=== PATIENT | male | born 1995 | race Caucasian/White ===

== ENCOUNTER 2021-07-21 09:29 | Emergency (ER) | payer OTHER ==
--- NOTE | 2021-07-21 11:15 | ED Physician Documentation ---
History of Present Illness - Stated complaint Stated Complaint: HEAD PX/FEVER/SWEATS - Chief complaint Chief Complaint: Fever - History obtained from History obtained from: Patient - Additonal information Additional information: The patient comes to the emergency department with chief complaint of headache, neck stiffness, body aches, fatigue, and possibly low-grade fever for the last 3 days. Patient states that he was at work on Wednesday, which was 3 days ago, when he suddenly felt very tired. He states he developed somewhat of a headache that day which is persisted through the weekend. He also states he developed some "stiffness" of his neck, which he indicates is located at the superior aspect of the left neck musculature. The patient is not sure if he is still running any fevers. He did not have a fever here. The patient denies any nasal congestion. He states that the [facility] sent him here for evaluation for meningitis. The patient is vaccinated for Covid and had a negative test couple of days ago. He states he is otherwise healthy. No nausea or vomiting. Patient has been able to take food and fluids without too much difficulty, he states. The patient states his other concern is that last night, when he took a deep breath, he noticed that his heart rate sped up, and it hurt a little bit. He denies any chest pain at any other time. He has not had any pain or palpitations, especially with leaning forward. No dyspnea. Review of Systems Ten Systems: 10 systems reviewed and negative Constitutional: reports: Fever (Subjective, low-grade), Fatigue Eyes: reports: Reviewed and negative Ears: reports: Reviewed and negative Nose: reports: Reviewed and negative Throat: reports: Reviewed and negative Cardiac: reports: Reviewed and negative Respiratory: reports: Reviewed and negative GI: reports: Reviewed and negative : reports: Reviewed and negative Skin: reports: Reviewed and negative Musculoskeletal: reports: Neck pain Neurologic: reports: Headache Psychiatric: reports: Reviewed and negative Endocrine: reports: Reviewed and negative Immunocompromised: reports: Reviewed and negative PD PAST MEDICAL HISTORY - Past Medical History Past Medical History: No Cardiovascular: None Respiratory: None Neuro: None Endocrine/Autoimmune: None GI: None : None HEENT: None Psych: None Musculoskeletal: None Derm: None - Past Surgical History Past Surgical History: Yes - Present Medications Home Medications: Ambulatory Orders Medication Instructions Recorded Confirmed Acetaminophen/Cod 300/30 [Tylenol 2 each PO Q4-6H PRN #20 tablet 07/21/21 #3] - Allergies Allergies/Adverse Reactions: Allergies Allergy/AdvReac Type Severity Reaction Status Date / Time No Known Drug Allergies Allergy Verified 07/21/21 09:43 - Social History Does the pt smoke?: No Smoking Status: Never smoker Does the pt drink ETOH?: No Does the pt have substance abuse?: No - Immunizations Immunizations are current?: No PD ED PE NORMAL - Vitals Vital signs reviewed: Yes - General General: Alert and oriented X 3, No acute distress, Well developed/nourished - HEENT HEENT: Atraumatic, PERRL, EOMI, Moist mucous membranes - Neck Neck: Supple, no meningeal sign (During the interview, patient moves his neck with ease. On Physical exam, is able to flex nearly fully though doesn't quite touch chin to chest. Nearly full extension and side to side rotational movement. Tenderness of BL neck musculature, Greatest at left skull base) - Cardiac Cardiac: RRR, No murmur - Respiratory Respiratory: No respiratory distress, Clear bilaterally - Abdomen Abdomen: Soft, Non tender, Non distended - Derm Derm: Normal color, Warm and dry, No rash - Extremities Extremities: No deformity, No edema - Neuro Neuro: Alert and oriented X 3, hook loader 2-12 intact, No motor deficit, No sensory deficit, Normal speech - Psych Psych: Normal mood, Normal affect Results - Vitals Vitals: Vital Signs - 24 hr 07/21/21 09:38 Temperature 36.0 C L Heart Rate 83 Respiratory 16 Rate Blood Pressure 122/84 H O2 Saturation 98 Oxygen O2 Source Room air - EKG (time done) 1052 Rate: Rate (enter#) (80) Rhythm: NSR [place]: Normal Intervals: Normal FL QRS: Normal Ischemia: Other (Slight ST elevation less than 1 mm leads I, II, and V4 through V6.). No: T wave inversion Compare to prior EKG: Old EKG unavailable Computer interpretation: Disagree with computer (Minimal ST elevation with out global findings and no shortened FL interval. Disagree with assessment of acute pericarditis.) PD MEDICAL DECISION MAKING - ED course Complexity details: reviewed results, re-evaluated patient, considered differential, d/w patient ED course: The patient was actually fairly well-appearing, though he did appear to be somewhat uncomfortable. I discussed with him that he most likely has one of the many viral illnesses that are going around. He could have influenza or an influenza-like illness. It is also possible that he has Covid, though he did have a negative test just recently. I have sent a respiratory PCR panel to evaluate for other viral illnesses. As far as concern over meningitis, the patient actually has very good range of motion of his neck, as evidenced during our conversation when the patient is passively moving his neck around, and also, during the dedicated physical exam, during which the patient demonstrates nearly full range of motion, including with flexion. The patient has isolated symptoms of heart pounding and some chest discomfort during inhalation, But otherwise, has been asymptomatic from the standpoint of cardiovascular respiratory symptoms. The EKG did read out as suggestion of acute pericarditis, but I do not feel that this fits the clinical picture. Additionally, the patient had slight ST elevations only in some leads, and no other findings consistent with pericarditis, such as tachycardia or depressed FL segment. Thirdly, his cardiac exam was normal, without a rub. As such, I do not think the patient has pericarditis at this time, though certainly if he develops further symptoms to suggest this, should be reevaluated. We have discussed symptomatic management at home. The patient feels that his ibuprofen is not working, so I will give him a small prescription for some Tylenol 3. We have discussed home management of symptoms, as well as usual indications for return. Departure - Departure Disposition: 01 Home, Self Care Clinical Impression: Viral syndrome, Acute muscle stiffness of neck, Palpitations with regular cardiac rhythm Headache Qualifiers: Headache type: unspecified Headache chronicity pattern: acute headache Intractability: not intractable Qualified Code(s): R51.9 - Headache, unspecified Condition: Stable Instructions: ED Viral Syndrome Prescriptions: Acetaminophen/Cod 300/30 [Tylenol #3] 2 each PO Q4-6H PRN #20 tablet PRN Reason: Headache Comments: Your symptoms are indicative of one of the many viral illnesses that are going around at this time. There are various reasons you can develop a sense of neck stiffness or pain, but the neck stiffness associated with meningitis is very specific and nonmuscular. You have actually quite good range of motion of your neck and your physical exam findings do not at all indicate meningitis at this point in time. You do have tenderness of your neck musculature, especially on the left, and most likely with the not feeling well, your neck Musculature has tensed up. As far as the palpitations and chest discomfort, your EKG looks good. You do not have any symptoms or findings consistent with a viral inflammation of your heart or the sac which surrounds it, at this time. Please stay home and rest until you are feeling better. A viral panel has been sent today to test for Some of the other common viruses that go around and can cause some similar symptoms to what you are having. The test will also check for Covid again and you will be contacted if this is positive. Otherwise, you may monitor your results by going to the hospital website at [email or web address], clicking on the "my [facility]" tab, and signing up for the patient portal.Osiris lopez may car pick up driver your medication at the [facility] pharmacy. Forms: Activity restrictions
[2021-07-21 11:35] VITALS: BP 146/79
[2021-07-21 12:24] LABS: B. PARAPERTUSSIS- RESP PCR PAN NOT DETECTED; B. PERTUSSIS- RESP PCR PANEL NOT DETECTED; C. PNEUMONIAE- RESP PCR PANEL NOT DETECTED; CORONAVIRUS 229E-RESP PCR NOT DETECTED; CORONAVIRUS HKU1-RESP PCR NOT DETECTED; CORONAVIRUS NL63-RESP PCR NOT DETECTED; CORONAVIRUS OC43-RESP PCR NOT DETECTED; HUMAN METAPNEUMOVIRUS NOT DETECTED; INFLUENZA A- RESP PCR PANEL NOT DETECTED; INFLUENZA B - RESP PCR PANEL NOT DETECTED; M. PNEUMONIAE- RESP PCR PANEL NOT DETECTED; PARAINFLUENZA VIRUS 1 NOT DETECTED; PARAINFLUENZA VIRUS 2 NOT DETECTED; PARAINFLUENZA VIRUS 3 NOT DETECTED; PARAINFLUENZA VIRUS 4 NOT DETECTED; RHINOVIRUS/ENTEROVIRUS NOT DETECTED; RSV- RESP PCR PANEL NOT DETECTED; SARS-CoV-2 -RESP PCR PANEL NOT DETECTED
== END 2021-07-21 11:38 | disposition home or self-care (01) ==
LOC: ED 09:29
DX: R51.9 Headache, unspecified (principal); R50.9 Fever, unspecified; B34.9 Viral infection, unspecified; M25.69 Stiffness of other specified joint, not elsewhere classified; R00.2 Palpitations; Z20.822 Contact with and (suspected) exposure to COVID-19
CPT/HCPCS: 0202U; 93005; 99283

== ENCOUNTER 2021-09-14 23:51 | Emergency (ER) | payer OTHER ==
--- NOTE | 2021-09-14 23:56 | ED Physician Documentation ---
PD HPI MHE - Stated complaint Stated Complaint: SI - History obtained from History obtained from: Patient, EMS - History of Present Illness Primary symptom: Depression Similar symptoms before: No diagnosis Recently seen: Not recently seen - Additional information Additional information: BIBA. Patient says he "reached a breaking point" (per patient) tonight. He elaborates that he has had increasing feeling of depression over past several months but tonight he feels overwhelmed. He admits to drinking alcohol tonight. He denies SI on my HPI. Denies HI/AH/VH. He says he has never been to an ED before, nor inpatient, for mental health-related issues. He says he has never been prescribed medication for anxiety or depression in the past. Review of Systems Cardiac: reports: Reviewed and negative Respiratory: reports: Reviewed and negative GI: reports: Reviewed and negative Psychiatric: reports: Depressed. denies: Suicidal, Homicidal, Hallucinations, Delusions PD PAST MEDICAL HISTORY - Past Medical History Cardiovascular: None Respiratory: None Neuro: None Endocrine/Autoimmune: None GI: None : None HEENT: None Psych: None Musculoskeletal: None Derm: None - Past Surgical History Past Surgical History: Yes - Present Medications Home Medications: Ambulatory Orders Medication Instructions Recorded Confirmed No Known Home Medications 09/15/21 09/15/21 - Allergies Allergies/Adverse Reactions: Allergies Allergy/AdvReac Type Severity Reaction Status Date / Time No Known Drug Allergies Allergy Verified 09/15/21 00:19 - Social History Does the pt smoke?: No Smoking Status: Never smoker Does the pt drink ETOH?: No Does the pt have substance abuse?: No - Immunizations Immunizations are current?: No PD ED PE NORMAL - Vitals Vital signs reviewed: Yes - General General: Alert and oriented X 3, Well developed/nourished, Other (tearful but calm and cooperative) - HEENT HEENT: Moist mucous membranes - Cardiac Cardiac: RRR, No murmur - Respiratory Respiratory: No respiratory distress, Clear bilaterally - Neuro Neuro: Alert and oriented X 3 PD ED PE EXPANDED - Psych Psych: Intoxicated / AOB, Depressed, Tearful Results - Vitals Vitals: Vital Signs - 24 hr 09/14/21 09/15/21 23:55 08:17 Temperature 37 C Heart Rate 95 86 Respiratory 17 16 Rate Blood Pressure 161/96 H 118/76 O2 Saturation 96 96 Oxygen O2 Source Room air - Labs Labs: Laboratory Tests 09/15/21 09/15/21 09/15/21 00:20 00:30 00:34 WBC 6.4 RBC 5.47 Hgb 16.3 Hct 46.7 MCV 85.4 MCH 29.8 MCHC 34.9 RDW 13.2 Plt Count 309 MPV 9.2 Neut # (Auto) 3.3 Lymph # (Auto) 2.3 [place] # (Auto) 0.7 Eos # (Auto) 0.1 Baso # (Auto) 0.1 Absolute Nucleated RBC 0.00 Nucleated RBC % 0.0 Sodium Potassium Chloride Carbon Dioxide Anion Gap BUN Creatinine Estimated GFR (MDRD) Glucose Calcium Total Bilirubin AST ALT Alkaline Phosphatase Total Protein Albumin Globulin Albumin/Globulin Ratio Lipase TSH Urine Color YELLOW Urine Clarity CLEAR Urine pH 6.0 Ur Specific [place] <=1.005 Urine Protein NEGATIVE Urine Glucose (UA) NEGATIVE Urine Ketones NEGATIVE Urine Occult Blood NEGATIVE Urine Nitrite NEGATIVE Urine Bilirubin NEGATIVE Urine Urobilinogen 0.2 (NORMAL) Ur Leukocyte Esterase NEGATIVE Ur Microscopic Review NOT INDICATED Urine Culture Comments NOT INDICATED Salicylates Urine Opiates Screen NEGATIVE Ur Oxycodone Screen NEGATIVE Urine Methadone Screen NEGATIVE Ur Propoxyphene Screen NEGATIVE Acetaminophen Ur Barbiturates Screen NEGATIVE Ur Tricyclics Screen NEGATIVE Ur Phencyclidine Scrn NEGATIVE Ur Amphetamine Screen NEGATIVE U Methamphetamines Scrn NEGATIVE U Benzodiazepines Scrn NEGATIVE Urine Cocaine Screen NEGATIVE U Cannabinoids Screen NEGATIVE Ethyl Alcohol SARS-CoV-2 (PCR) NOT DETECTED 09/15/21 09/15/21 09/15/21 00:34 00:34 08:13 WBC RBC Hgb Hct MCV MCH MCHC RDW Plt Count MPV Neut # (Auto) Lymph # (Auto) [place] # (Auto) Eos # (Auto) Baso # (Auto) Absolute Nucleated RBC Nucleated RBC % Sodium 139 Potassium 3.9 Chloride 96 L Carbon Dioxide 27 Anion Gap 16.0 H BUN 7 Creatinine 0.9 Estimated GFR (MDRD) 102 Glucose 102 H Calcium 9.0 Total Bilirubin 0.5 AST 28 ALT 21 Alkaline Phosphatase 51 Total Protein 8.9 H Albumin 4.7 Globulin 4.2 Albumin/Globulin Ratio 1.1 Lipase 43 TSH 1.06 Urine Color Urine Clarity Urine pH Ur Specific [place] Urine Protein Urine Glucose (UA) Urine Ketones Urine Occult Blood Urine Nitrite Urine Bilirubin Urine Urobilinogen Ur Leukocyte Esterase Ur Microscopic Review Urine Culture Comments Salicylates < 6.0 Urine Opiates Screen Ur Oxycodone Screen Urine Methadone Screen Ur Propoxyphene Screen Acetaminophen < 10 L Ur Barbiturates Screen Ur Tricyclics Screen Ur Phencyclidine Scrn Ur Amphetamine Screen U Methamphetamines Scrn U Benzodiazepines Scrn Urine Cocaine Screen U Cannabinoids Screen Ethyl Alcohol 262.3 126.1 SARS-CoV-2 (PCR) PD MEDICAL DECISION MAKING - ED course Complexity details: reviewed results, re-evaluated patient, considered differential, d/w patient ED course: Presents to ED via ambulance, c/o feelings of depression and feeling overwhelmed. He denies SI on my HPI, but triaging ED RN reports that patient had indicated to her that he had fleeting thought of cutting his throat with a knife. When I ask him if he desires hospitalization (inpatient treatment for depression), he says he is uncertain. He is calm and cooperative and is agreeable to stay in ED until his ETOH level decreases to level that is appropriate for reevaluation. He is thus kept in ED overnight, as his alcohol level is .262 on initial draw. Care of patient turned over to Dr. Card at end of my shift, pending redraw of ETOH until it is below 0.08 and patient can be reevaluated
[2021-09-15 00:40] LABS: BASOPHILS # (AUTO) 0.1 10^3/uL (0.0-0.1); BASOPHILS % (AUTO) 0.8 %; EOSINOPHILS # (AUTO) 0.1 10^3/uL (0.0-0.7); EOSINOPHILS % (AUTO) 1.4 %; HCT - HEMATOCRIT 46.7 % (42.0-52.0); HGB - HEMOGLOBIN 16.3 g/dL (14.0-18.0); LYMPHOCYTES # (AUTO) 2.3 10^3/uL (1.5-3.5); LYMPHOCYTES % (AUTO) 35.4 %; MEAN CORPUSCULAR HEMOGLOBIN 29.8 pg (27.0-31.0); MEAN CORPUSCULAR HGB CONC 34.9 g/dL (32.0-36.0); MEAN CORPUSCULAR VOLUME 85.4 fL (80.0-94.0); MEAN PLATELET VOLUME 9.2 fL (7.4-11.4); MONOCYTES # (AUTO) 0.7 10^3/uL (0.0-1.0); MONOCYTES % (AUTO) 10.6 %; NEUTROPHILS # (AUTO) 3.3 10^3/uL (1.5-6.6); NEUTROPHILS % (AUTO) 51.6 %; PLT - PLATELET COUNT 309 10^3/uL (130-450); RED BLOOD COUNT 5.47 10^6/uL (4.70-6.10); RED CELL DISTRIBUTION WIDTH 13.2 % (12.0-15.0); WHITE BLOOD COUNT 6.4 x10^3/uL (4.8-10.8)
[2021-09-15 00:42] LABS: MUDS CUTOFF CONCENTRATIONS CUTOFF CONC BELOW:
[2021-09-15 00:46] LABS: BILIRUBIN,URINE NEGATIVE (NEGATIVE); GLUCOSE, URINE (UA) NEGATIVE (NEGATIVE); KETONES,URINE (UA) NEGATIVE (NEGATIVE); LEUKOCYTE ESTERASE, URINE NEGATIVE (NEGATIVE); NITRITE,URINE NEGATIVE (NEGATIVE); OCCULT BLOOD,URINE NEGATIVE (NEGATIVE); PROTEIN,URINE NEGATIVE (NEGATIVE); UROBILINOGEN,URINE 0.2 (NORMAL) E.U./dL (NORMAL)
[2021-09-15 00:56] LABS: CLARITY,URINE CLEAR (CLEAR); COCAINE SCREEN URINE NEGATIVE (NEGATIVE); METHAMPHETAMINES SCREEN, URINE NEGATIVE (NEGATIVE); OPIATE SCREEN, URINE NEGATIVE (NEGATIVE); THC CANNABINOID SCREEN, URINE NEGATIVE (NEGATIVE)
[2021-09-15 00:57] LABS: AMPHETAMINE SCREEN,URINE NEGATIVE (NEGATIVE); BARBITURATE SCREEN,UR NEGATIVE (NEGATIVE); BENZODIAZEPINES SCREEN, URINE NEGATIVE (NEGATIVE); METHADONE SCREEN, URINE NEGATIVE (NEGATIVE); OXYCODONE SCREEN, URINE NEGATIVE (NEGATIVE); PROPOXYPHENE SCREEN, URINE NEGATIVE (NEGATIVE); TRICYCLIC ANTIDEPRESSANT,URINE NEGATIVE (NEGATIVE)
[2021-09-15 00:59] LABS: ACETAMINOPHEN < 10 ug/mL (10-30); ALBUMIN 4.7 g/dL (3.2-5.5); ALBUMIN/GLOBULIN RATIO 1.1 (1.0-2.2); ALKALINE PHOSPHATASE 51 IU/L (42-121); ALT ALANINE AMINOTRANSFERASE 21 IU/L (10-60); AST ASPARTATE AMINOTRANSFERASE 28 IU/L (10-42); BILIRUBIN,TOTAL 0.5 mg/dL (0.2-1.0); BUN - BLOOD UREA NITROGEN 7 mg/dL (6-20); CARBON DIOXIDE - CO2 27 mmol/L (21-32); CHLORIDE 96 mmol/L (101-111); CREATININE 0.9 mg/dL (0.6-1.2); ETOH - ETHANOL 262.3 mg/dL; GFR - MDRD 102 (>89); GLUCOSE 102 mg/dL (70-100); LIPASE 43 U/L (22-51); POTASSIUM 3.9 mmol/L (3.5-5.0); SALICYLATE < 6.0 mg/dL; SODIUM 139 mmol/L (135-145); TOTAL PROTEIN 8.9 g/dL (6.7-8.2)
[2021-09-15 08:18] VITALS: BP 118/76
--- NOTE | 2021-09-15 14:00 | ED Physician Documentation ---
ED Addendum - Addendum Addendum: 09/15/21 13:59 Seen by social work, now he is clinically sober, no ongoing suicidal ideation. Social work arranged for expedited counseling and safety plan. 09/15/21 14:00 Disposition: Discharged home Condition: Stable Diagnosis 1. Alcohol intoxication 2. Depression
== END 2021-09-15 14:25 | disposition home or self-care (01) ==
LOC: EDUNIT# → EDBD → ED 23:51
DX: F10.129 Alcohol abuse with intoxication, unspecified (principal); F32.A Depression, unspecified; Z20.822 Contact with and (suspected) exposure to COVID-19
CPT/HCPCS: 36415; 80053; 80306; 80307; 80320; 80329; 81001; 81003; 83690; 84443; 85025; 87086; 99283; 99284

== ENCOUNTER 2021-10-22 15:03 | Emergency (ER) | payer OTHER ==
[2021-10-22 15:10] VITALS: BP 127/74
[2021-10-22 15:24] LABS: BASOPHILS # (AUTO) 0.1 10^3/uL (0.0-0.1); BASOPHILS % (AUTO) 0.6 %; EOSINOPHILS # (AUTO) 0.1 10^3/uL (0.0-0.7); HCT - HEMATOCRIT 44.2 % (42.0-52.0); HGB - HEMOGLOBIN 15.3 g/dL (14.0-18.0); LYMPHOCYTES # (AUTO) 1.7 10^3/uL (1.5-3.5); LYMPHOCYTES % (AUTO) 18.8 %; MEAN CORPUSCULAR HEMOGLOBIN 30.1 pg (27.0-31.0); MEAN CORPUSCULAR HGB CONC 34.6 g/dL (32.0-36.0); MEAN CORPUSCULAR VOLUME 86.8 fL (80.0-94.0); MEAN PLATELET VOLUME 10.4 fL (7.4-11.4); MONOCYTES # (AUTO) 0.9 10^3/uL (0.0-1.0); MONOCYTES % (AUTO) 10.4 %; NEUTROPHILS # (AUTO) 6.1 10^3/uL (1.5-6.6); PLT - PLATELET COUNT 241 10^3/uL (130-450); RED BLOOD COUNT 5.09 10^6/uL (4.70-6.10); RED CELL DISTRIBUTION WIDTH 12.4 % (12.0-15.0); WHITE BLOOD COUNT 8.8 x10^3/uL (4.8-10.8)
[2021-10-22 15:36] LABS: ALBUMIN 4.7 g/dL (3.2-5.5); ALBUMIN/GLOBULIN RATIO 1.5 (1.0-2.2); BILIRUBIN,TOTAL 0.4 mg/dL (0.2-1.0); CALCIUM 9.6 mg/dL (8.5-10.3); CREATININE 1.2 mg/dL (0.6-1.2); POTASSIUM 3.7 mmol/L (3.5-5.0); TOTAL PROTEIN 7.9 g/dL (6.7-8.2)
== END 2021-10-22 17:48 | disposition left against medical advice (07) ==
LOC: EDSEX → EDUNIT# → ED 15:03
DX: Z53.21 Procedure and treatment not carried out due to patient leaving prior to being seen by health care provider (principal)
CPT/HCPCS: 36415; 80053; 83690; 85025

== ENCOUNTER 2023-08-10 18:00 | Emergency (ER) | payer OTHER ==
[2023-08-10 18:15] VITALS: BP 127/85; O2SAT 99
[2023-08-10] MEDS ORDERED: ACETAMINOPHEN 325 MG TABLET PO STA (18:46)
[2023-08-10] MEDS ORDERED: IBUPROFEN 600 MG TABLET PO STA (18:47)
--- NOTE | 2023-08-10 18:49 | ED Physician Documentation ---
PD HPI HEENT - Stated complaint Stated Complaint: JAW PX - Chief complaint Chief Complaint: Heent - Additional information Additional information: 28-year-old male presents emergency department for left back molar pain. This started yesterday said that he is taken the ibuprofen yesterday but no Tylenol or ibuprofen today but feels like the pain is not getting any better. He has had no fevers or chills he has had no history of dental abscesses or other significant dental history. He did call his dentist they are not able to get him until August 22. Able to open and close his jaw without any difficulty or pain. PD PAST MEDICAL HISTORY - Past Medical History Past Medical History: Yes Cardiovascular: None Respiratory: None Neuro: None Endocrine/Autoimmune: None GI: None : None HEENT: None Psych: None Musculoskeletal: None Derm: None - Past Surgical History Past Surgical History: Yes - Present Medications Home Medications: Ambulatory Orders Medication Instructions Recorded Confirmed Amox/Clav 875/125 [Augmentin 1 tablet PO Q12H 7 Days #14 tablet 08/10/23 875/125 Tab] - Allergies Allergies/Adverse Reactions: Allergies Allergy/AdvReac Type Severity Reaction Status Date / Time No Known Drug Allergies Allergy Verified 08/10/23 18:04 - Social History Does the pt smoke?: No Smoking Status: Never smoker Does the pt drink ETOH?: No Does the pt have substance abuse?: No - Immunizations Immunizations are current?: Yes - POLST Patient has POLST: No PD ED PE NORMAL - Vitals Vital signs reviewed: Yes - General General: No acute distress, Well developed/nourished - HEENT HEENT: Atraumatic, Moist mucous membranes, Pharynx benign, Dentition benign, Other Results - Vitals Vitals: Vital Signs - 24 hr 08/10/23 18:04 Temperature 36.2 C L Heart Rate 75 Respiratory 16 Rate Blood Pressure 127/85 H O2 Saturation 99 Oxygen O2 Source Room air PD Medical Decision Making - ED course ED course: Patient presents for dental pain due to suspected dental mary ellen. Patient not immunosuppressed, afebrile and well appearing with patent airway, have low suspicfion for deep space infection or any concern for airway compromise. Based on history, physical, and work up. No evidence of tooth fracture, avulsion, or bleeding socket. No evidence of RPA, ADAP[employer]IST, [place]igs angina, periapical abscess. Instructed patient to continue to treat pain with ibuprofen/acetaminophen until they see a dentist. Defer ABX for dental pain alone with no overt evidence of infection. Patient discharged home and will follow up with dentist. Discussed return precautions for odontogenic infections and other dental pain emergencies. Departure - Departure Disposition: 01 Home, Self Care Clinical Impression: Pain, dental Condition: Good Instructions: ED Abscess Dental Prescriptions: Amox/Clav 875/125 [Augmentin 875/125 Tab] 1 tablet PO Q12H 7 Days #14 tablet Comments: Thank you for trusting us with your care. As we discussed I do not believe that antibiotics are warranted at this time as I am not seeing any obvious erythema or abscess at this time. I would be very consistent with alternating between the Tylenol and ibuprofen and applying ice to the part of your face that you are feeling pain with. Please call your dentist tomorrow to see if they are able to get you in any earlier as your dentist may not want you on antibiotics for this because it could be due to a cavity. I did go ahead and send a prescription of Augmentin to the [facility] pharmacy she can pick this up if they are not able to get you in any earlier and your dental pain gets worse or you are starting to notice any facial swelling. Please come back to the emergency department for concerning noticed severe worsening facial swelling, difficulty breathing, fevers or chills, or any other concerning symptoms. Forms: PCP List Discharge Date/Time: 08/10/23 19:02
[2023-08-10] MEDS: IBUPROFEN 600 MG TABLET PO STA (18:55)
[2023-08-10] MEDS: ACETAMINOPHEN 325 MG TABLET PO STA (18:55)
== END 2023-08-10 19:02 | disposition home or self-care (01) ==
LOC: ED 18:00
DX: K08.89 Other specified disorders of teeth and supporting structures (principal)
CPT/HCPCS: 99282; 99283; A9270

== ENCOUNTER 2023-08-14 17:55 | Emergency (ER) | payer OTHER ==
[2023-08-14 18:07] VITALS: O2SAT 100
--- NOTE | 2023-08-14 19:40 | ED Physician Documentation ---
History of Present Illness - Stated complaint Stated Complaint: JAW PX - Chief complaint Chief Complaint: Heent - History obtained from History obtained from: Patient - History of Present Illness Timing: How many weeks ago (1) Pain level max: 6 Pain level now: 5 - Additonal information Additional information: Patient is a 28-year-old male who presents to the emergency department complaining of left-sided mandibular/dental pain. Ongoing for the past 1 week. He states he was seen here on Wednesday, was prescribed antibiotics but did not start them[place] teeth are fine and they find no cause for the pain. He saw his primary care provider who also stated that they saw no cause for the pain. He states the pain mildly improved with naproxen. He states that he has had continued pain tonight so came back to the emergency department. No fevers. No chills. No cough. No congestion. He states that the left side of his face feels mildly swollen. He does not have any sore throat. No difficulty speaking or swallowing. No pain with swallowing. He states it does hurt slightly to eat. Review of Systems Constitutional: denies: Fever, Chills Respiratory: denies: Cough GI: denies: Nausea, Vomiting, Diarrhea Skin: denies: Rash Musculoskeletal: denies: Neck pain, Back pain Neurologic: denies: Headache PD PAST MEDICAL HISTORY - Past Medical History Cardiovascular: None Respiratory: None Neuro: None Endocrine/Autoimmune: None GI: None : None HEENT: None Psych: None Musculoskeletal: None Derm: None - Past Surgical History Past Surgical History: Yes - Present Medications Home Medications: Ambulatory Orders Medication Instructions Recorded Confirmed Amox/Clav 875/125 [Augmentin] 1 tab PO Q12H #20 tablet 08/14/23 - Allergies Allergies/Adverse Reactions: Allergies Allergy/AdvReac Type Severity Reaction Status Date / Time No Known Drug Allergies Allergy Verified 08/14/23 18:02 - Social History Does the pt smoke?: No Smoking Status: Never smoker Does the pt drink ETOH?: No Does the pt have substance abuse?: No - Immunizations Immunizations are current?: No - POLST Patient has POLST: No PD ED PE NORMAL - Vitals Vital signs reviewed: Yes - General General: Alert and oriented X 3, No acute distress - HEENT HEENT: PERRL, EOMI, Moist mucous membranes, Pharynx benign, Dentition benign - Neck Neck: Supple, no meningeal sign - Cardiac Cardiac: RRR, Strong equal pulses - Respiratory Respiratory: No respiratory distress, Clear bilaterally - Derm Derm: Warm and dry - Neuro Neuro: Alert and oriented X 3 - Free text exam Free text exam: No gingival swelling. No facial swelling. No skin changes. No tenderness over the teeth. Especially no tenderness over the left upper molars or left lower molars. No gingival swelling. No tenderness to percussion over the mandible. Does have minimal tenderness over the parotid gland, but no swelling. No swelling under the tongue. Normal phonation. No trismus. Uvula midline. No tonsillar swelling. No exudates. No tenderness over the sinuses. Results - Vitals Vitals: Vital Signs - 24 hr 08/14/23 08/14/23 08/14/23 17:57 20:54 22:00 Temperature 36.1 C L Heart Rate 73 65 71 Respiratory 16 16 16 Rate Blood Pressure 134/75 H 139/85 H 138/78 H O2 Saturation 100 100 100 Oxygen O2 Source Room air - Labs Labs: Laboratory Tests 08/14/23 08/14/23 08/14/23 19:44 19:44 19:44 WBC 7.0 RBC 4.78 Hgb 13.9 L Hct 41.3 L MCV 86.4 MCH 29.1 MCHC 33.7 RDW 12.4 Plt Count 211 MPV 9.9 Neut # (Auto) 4.0 Lymph # (Auto) 2.0 Terry # (Auto) 0.8 Eos # (Auto) 0.1 Baso # (Auto) 0.1 Absolute Nucleated RBC 0.00 Nucleated RBC % 0.0 ESR 5 Sodium 141 Potassium 4.4 Chloride 106 Carbon Dioxide 30 Anion Gap 5.0 L BUN 17 Creatinine 1.2 Estimated GFR (MDRD) 72 L Glucose 92 Calcium 9.2 Total Bilirubin 0.3 AST 23 ALT 35 Alkaline Phosphatase 33 L C-Reactive Protein < 0.5 Total Protein 6.5 Albumin 4.1 Globulin 2.4 Albumin/Globulin Ratio 1.7 - Rads (name of study) CT maxillofacial Relevant Findings:: Final report received, See rad report PD Medical Decision Making - ED course Complexity details: reviewed results, re-evaluated patient, considered differential, d/w patient, d/w family ED course: Patient with left-sided facial/jaw pain of unclear etiology. No significant findings on laboratory testing. Sed rate CRP are negative. Maxillofacial CT was undertaken, possible infection in the tonsillar pillar. He had been prescribed Augmentin at the prior visit but he had not started taking this. Was given a dose of dexamethasone here and a dose of Augmentin. We will have him follow-up with his doctor for repeat evaluation in 2 to 3 days after he has been taking the Augmentin. No significant facial swelling. No trismus. Normal phonation. No stridor or wheezing. No evidence of airway compromise. Patient counseled regarding signs and symptoms for which I believe and urgent re- evaluation would be necessary. Patient with good understanding of and agreement to plan and is comfortable going home at this time This document was made in part using voice recognition software. While efforts are made to proofread this document, sound alike and grammatical errors may occur. Departure - Departure Disposition: 01 Home, Self Care Clinical Impression: Tonsillitis Condition: Good Instructions: ED Tonsillitis Follow-Up: your,doctor in 3 days [Other] Prescriptions: Amox/Clav 875/125 [Augmentin] 1 tab PO Q12H #20 tablet Comments: Your prescriptions were sent to [facility] in [place]. Please follow-up with your doctor for further care. Please return if you worsen. You may have infection in the left tonsillar pillar area. Your laboratory findings do not show any acute abnormalities. Please take all antibiotics until gone. EXAM: [id number] CT/FACBW ([id number]) PROCEDURE: Maxillofacial W INDICATIONS: L facial pain CONTRAST: 100 ML OMNI 300 TECHNIQUE: After the administration of intravenous contrast, 3.0 mm axial sections acquired from the mid-neck to the frontal sinuses, with coronal reformatting. For radiation dose reduction, the following was used: automated exposure control, adjustment of mA and/or kV according to patient size. COMPARISON: None. FINDINGS: Image quality: Metal artifact from dental work crosses the soft tissues of the low oropharynx and tonsillar pillar area.. Soft tissues: No masses, or definite fluid collections. No enlarged lymph nodes. There does appear to be mild asymmetric thickening of the left tonsillar pillar area, best seen at the axial level of the uvula to the left of midline. Several very small gas bubbles are seen within the soft tissues in this area but a discrete rim-enhancing fluid collection is not found. Vascular: Visualized vascular structures appear patent throughout. Bony vascular foramina and canals appear normal. Bones: Facial bones appear intact, without fractures, erosions, or destruction. Visualized portions of the skull base and auditory canals also appear normal. Sinuses: Paranasal sinuses are aerated without fluid levels, mucosal thickening, or mucoceles. A small mucous retention cyst is seen within the inferior left maxillary sinus. Mastoid air cells are aerated. IMPRESSION: Suspect infection within the left tonsillar pillar area without identifiable abscess. Mild asymmetric mass effect in this area, centered at the axial level of the uvula to the left of midline. Please note that occasionally contrast-enhanced MR scanning may be detected phlegmon progressing into abscess formation that is relatively poorly detected by CT scanning. Forms: PCP List Discharge Date/Time: 08/14/23 22:00
[2023-08-14 19:47] LABS: BASOPHILS # (AUTO) 0.1 10^3/uL (0.0-0.1); BASOPHILS % (AUTO) 0.7 %; EOSINOPHILS # (AUTO) 0.1 10^3/uL (0.0-0.7); EOSINOPHILS % (AUTO) 1.3 %; HCT - HEMATOCRIT 41.3 % (42.0-52.0); HGB - HEMOGLOBIN 13.9 g/dL (14.0-18.0); LYMPHOCYTES % (AUTO) 28.9 %; MEAN CORPUSCULAR HEMOGLOBIN 29.1 pg (27.0-31.0); MEAN CORPUSCULAR HGB CONC 33.7 g/dL (32.0-36.0); MEAN CORPUSCULAR VOLUME 86.4 fL (80.0-94.0); MEAN PLATELET VOLUME 9.9 fL (7.4-11.4); MONOCYTES # (AUTO) 0.8 10^3/uL (0.0-1.0); MONOCYTES % (AUTO) 11.7 %; NEUTROPHILS % (AUTO) 57.1 %; PLT - PLATELET COUNT 211 10^3/uL (130-450); RED BLOOD COUNT 4.78 10^6/uL (4.70-6.10); RED CELL DISTRIBUTION WIDTH 12.4 % (12.0-15.0)
[2023-08-14 20:08] LABS: ALBUMIN 4.1 g/dL (3.2-5.5); ALBUMIN/GLOBULIN RATIO 1.7 (1.0-2.2); ALKALINE PHOSPHATASE 33 IU/L (42-121); ALT ALANINE AMINOTRANSFERASE 35 IU/L (10-60); AST ASPARTATE AMINOTRANSFERASE 23 IU/L (10-42); BILIRUBIN,TOTAL 0.3 mg/dL (0.2-1.0); BUN - BLOOD UREA NITROGEN 17 mg/dL (6-20); CALCIUM 9.2 mg/dL (8.5-10.3); CARBON DIOXIDE - CO2 30 mmol/L (21-32); CHLORIDE 106 mmol/L (101-111); CREATININE 1.2 mg/dL (0.6-1.3); CRP - C-REACTIVE PROTEIN < 0.5 mg/dL (<0.5); GFR - MDRD 72 (>89); GLUCOSE 92 mg/dL (74-104); POTASSIUM 4.4 mmol/L (3.5-4.5); SODIUM 141 mmol/L (135-145); TOTAL PROTEIN 6.5 g/dL (6.4-8.9)
[2023-08-14] MEDS ORDERED: iohexoL-300 100 ML VIAL ONE (20:28)
[2023-08-14] MEDS: iohexoL-300 100 ML VIAL IVP ONE (20:58)
[2023-08-14] MEDS: IBUPROFEN 800 MG TABLET PO STA (21:23)
[2023-08-14] MEDS: ACETAMINOPHEN 325 MG TABLET PO STA (21:23)
--- NOTE | 2023-08-14 21:32 | CT Report ---
PROCEDURE: Maxillofacial W INDICATIONS: L facial pain CONTRAST: 100 ML OMNI 300 TECHNIQUE: After the administration of intravenous contrast, 3.0 mm axial sections acquired from the mid-neck to the frontal sinuses, with coronal reformatting. For radiation dose reduction, the following was use d: automated exposure control, adjustment of mA and/or kV according to patient size. COMPARISON: None. FINDINGS: Image quality: Metal artifact from dental work crosses the soft tissues of the low oropharynx and ton sillar pillar area.. Soft tissues: No masses, or definite fluid collections. No enlarged lymph nodes. There does appear to be mild asymmetric thickening of the left tonsillar pillar area, best seen at the axial level of the uvula to the left of midline. Several very small gas bubbles are seen within the soft tissues in this area but a discrete rim-enhancing fluid collection is not found. Vascular: Visualized vascular structures appear patent throughout. Bony vascular foramina and canal s appear normal. Bones: Facial bones appear intact, without fractures, erosions, or destruction. Visualized portions of the skull base and auditory canals also appear normal. Sinuses: Paranasal sinuses are aerated without fluid levels, mucosal thickening, or mucoceles. A sm all mucous retention cyst is seen within the inferior left maxillary sinus. Mastoid air cells are aer ated. IMPRESSION: Suspect infection within the left tonsillar pillar area without identifiable abscess. Mild asymmetric mass effect in this area, centered at the axial level of the uvula to the left of midline. Please no te that occasionally contrast-enhanced MR scanning may be detected phlegmon progressing into abscess formation that is relatively poorly detected by CT scanning. Reviewed by: Renan Pelayo MD on 08/14/2023 9:30 PM PST Approved by: Renan Pelayo MD on 08/14/2023 9:30 PM PST Station ID: [id number]
[2023-08-14] MEDS: AMOX/CLAV 875 MG/125 MG TABLET PO STA (21:55)
[2023-08-14] MEDS: CHERRY SYRUP 10 ML UDC PO ONE (21:56)
[2023-08-14] MEDS: DEXAMETHASONE 10 MG/ML VIAL PO STA (21:56)
[2023-08-14] MEDS: oxyCODONE 5 MG TABLET PO STA (21:58)
[2023-08-14 22:14] VITALS: BP 138/78
== END 2023-08-14 22:00 | disposition home or self-care (01) ==
LOC: ED 17:55
DX: J03.90 Acute tonsillitis, unspecified (principal)
CPT/HCPCS: 36415; 70487; 80053; 85025; 85651; 86140; 99284; A9270; Q9967